=== PATIENT | male | born 1960 | race Hispanic/Latino ===

== ENCOUNTER 2019-04-10 06:20 | Emergency (ER) | payer MEDICAID, OTHER ==
[2019-04-10] MEDS ORDERED: GEODON IM PRN (07:04)
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
[2019-04-10] MEDS ORDERED: WATER FOR INJ Sterile (PF) 10 ML ONE ×3 (07:57→23:07)
[2019-04-10] MEDS ORDERED: GEODON IM ONE ×2 (08:19→23:02)
[2019-04-10] MEDS ORDERED: ATIVAN IM ONE (08:19)
[2019-04-10] MEDS ORDERED: BOOSTRIX IM ONE (08:22)
[2019-04-10 11:02] LABS: Basophils # (Auto) 0.1 K/mm3 (0.0-0.1); Basophils % (Auto) 0.7 % (0.0-1.8); Eosinophils # (Auto) 0.1 K/mm3 (0.0-0.4); Hemoglobin 13.8 gm/dl (11.8-15.2); Lymphocytes # (Auto) 1.4 K/mm3 (1.2-5.4); Lymphocytes % (Auto) 15.3 % (13.4-35.0); Mean Corpuscular HGB Conc 35 % (32-34); Mean Corpuscular Volume 92 fl (84-94); Monocytes # (Auto) 0.6 K/mm3 (0.0-0.8); Platelet Count 231 K/mm3 (140-440); Red Blood Count 4.34 M/mm3 (3.65-5.03); Red Cell Distribution Width 14.7 % (13.2-15.2)
[2019-04-10 11:18] LABS: Alanine Aminotransferase 18 units/L (7-56); Albumin 4.5 g/dL (3.9-5); BUN/Creatinine Ratio 22; Blood Urea Nitrogen 22 mg/dL (9-20); Calcium 9.1 mg/dL (8.4-10.2); Hemolysis Index 3
[2019-04-10 11:19] LABS: Bilirubin,Direct < 0.2 mg/dL (0-0.2)
[2019-04-10] MEDS ORDERED: XYLOCAINE 1% 20 mL ONE (14:37)
[2019-04-10] MEDS ORDERED: NACL 0.9% 500 ML 500 ML ONE (14:45)
[2019-04-10] MEDS ORDERED: MILK OF MAGNESIA PO PRN (15:16)
[2019-04-10] MEDS ORDERED: TYLENOL PO PRN (15:16)
[2019-04-10] MEDS ORDERED: ALUM-MAG HYDROX-SIMETH 200-200-20MG/5ML PO PRN (15:16)
--- NOTE | 2019-04-10 22:09 | Cat Scan Report ---
CT head/brain wo con INDICATION: AMS. . TECHNIQUE: All CT scans at this location are performed using CT dose reduction for ALARA by means of automated e xposure control. COMPARISON: None available. FINDINGS: Visualized paranasal and mastoid sinuses are clear. Ventricles are symmetrical and normal in size. No mass, hemorrhage or other significant abnormality IMPRESSION: 1. Negative study. Signer Name: Corby Alcantar MD Signed: 04/10/2019 10:05 PM Workstation Name: [id number]
[2019-04-11 08:20] VITALS: BP 141/85
[2019-04-11 09:14] LABS: Cannabinoid Screen,Urine PRESUMPTIVE NEGATIVE; Methadone Screen,Urine PRESUMPTIVE NEGATIVE
[2019-04-11 09:18] LABS: Bacteria,Urine 1+ /HPF (Negative); Bilirubin,Urine NEG (Negative); Blood,Urine MOD (Negative); Color,Urine Yellow (Yellow); Mucus,Urine FEW /HPF; Protein,Urine <15 mg/dL mg/dL (Negative); Urobilinogen,Urine < 2.0 mg/dL (<2.0)
[2019-04-11 09:28] LABS: Amphetamine Screen,Urine PRESUMPTIVE POSITIVE; Benzodiazepines Screen,Urine PRESUMPTIVE POSITIVE; Cocaine Screen,Urine PRESUMPTIVE POSITIVE; Opiate Screen,Urine PRESUMPTIVE POSITIVE
[2019-04-11] MEDS ORDERED: ROCEPHIN IM ONE (11:21)
[2019-04-11] MEDS ORDERED: XYLOCAINE 1% MPF 5 mL INFILTRATI ONE (11:21)
[2019-04-11] MEDS ORDERED: CEFTIN PO ONE (12:21)
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
== END 2019-04-11 13:30 ==
LOC: ED 06:20 → EEVIPCON 06:20 → ED 04-11 13:30
DX: S61.411A Laceration without foreign body of right hand, initial encounter (principal); F32.9 Major depressive disorder, single episode, unspecified; R41.0 Disorientation, unspecified; G43.909 Migraine, unspecified, not intractable, without status migrainosus; Z86.19 Personal history of other infectious and parasitic diseases; F17.200 Nicotine dependence, unspecified, uncomplicated; F11.10 Opioid abuse, uncomplicated; Z79.899 Other long term (current) drug therapy
CPT/HCPCS: 12002; 36415; 70450; 80048; 80076; 80307; 81001; 82140; 82550; 82962; 84443; 85025; 87086; 90471; 90715; 96372; 99285; J0696; J2060; J3486; J7040; 80320; G0480